=== PATIENT | female | born 1980 | race Caucasian/White ===

== ENCOUNTER 2023-05-21 13:29 | Inpatient (IN) | payer OTHER, SELFPAY ==
[2023-05-20 20:12] VITALS: BP 139/87
[2023-05-20 20:23] VITALS: BMI 29.4
--- NOTE | 2023-05-20 20:28 | ED.GENMED ---
History of Present Illness
<Quang Ramos MD - Last Filed: 05/20/23 23:31>
General
Chief Complaint: Breathing Problem
Source: patient
Exam Limitations: none
Time Seen by Provider: 05/20/23 20:00
Nursing documentation reviewed up to this point in time: agreed with
Travel History
Have you had any contact with someone who has COVID-19?: No
Do you have any symptoms of coronavirus? Fever > 100 degrees, chills, cough, shortness of breath, sore throat, loss of taste or smell, muscle aches, or headache?: No
History of Present Illness
History of Present Illness:
Patient with history asthma, presents to ED from outpatient surgical center where she completed 8-hour scheduled plastic surgery, secondary to persistent hypoxia post procedure. Per report, patient was given 6 L of IV fluids as part of procedure,
but 3 L were removed during the procedure. Patient was given albuterol nebulizer treatment along with 10 mg of IV Lasix. Patient still has not voided. Patient denies fever. Denies headache. Denies dizziness. Denies chest pain.
Review of Systems
<Quang Ramos MD - Last Filed: 05/20/23 23:31>
Review of Systems
Allergies reviewed?: Yes
All Other Systems: ROS reviewed and negative except as documented in HPI and ROS
Constitutional: Reports no symptoms; Denies fever
EENT: Reports no symptoms
Respiratory: Reports trouble breathing; Denies cough
Cardiac: Reports no symptoms
ABD/GI: Reports no symptoms
: Reports no symptoms
Musculoskeletal: Reports no symptoms
Skin: Reports no symptoms
Neurological: Reports no symptoms
Phy Exam
<Quang Ramos MD - Last Filed: 05/20/23 23:31>
Physical Exam
Physical Exam:
Physical Exam
General: mild respiratory distress, not acutely ill. afebrile
Head: nc/at. eomi
Neck: supple. normal range of motion.
Heart: s1/s2 regular rate and rhythm, no murmur. equal radial pulses.
Lungs: mild respiratory distress. diminished breath sounds bilaterally
Abdomen: normal bowel sounds. not tender.
Neuro: alert and oriented. no focal neurological deficits
Skin: no rash
Psychiatric: well kept. interactive and cooperative
Extremities: no edema. no calf tenderness.
Course
<Quang Ramos MD - Last Filed: 05/20/23 23:31>
Orders/Labs/Results
Orders:
Orders
05/20/23 20:09
CR Chest Portable - 1 View Urgent
Comment:
Reason For Exam: sob
Reason Study Needs to be Portable: Patient Unstable
05/20/23 22:21
Acetaminophen [Tylenol] 1,000 mg PO NOW STA
05/20/23 23:29
Lai Placement- Treatment ONCE
Reason for insertion: Acute Retention
05/21/23 01:44
Morphine Sulfate 4 mg IV NOW STA
05/21/23 01:45
Ice Pack-Treatment DIRECTED
Location: b/l breast and abd
05/21/23 05:44
Oxycodone/Acetaminophen [Percocet 5/325] 1 tablet PO NOW STA
05/21/23 09:41
CefTRIAXone [Rocephin] 1,000 mg IV NOW STA
MetroNIDAZOLE 500 MG/100 ML [Flagyl 500 mg] 100 ml IV NOW
05/21/23 10:10
Complete Blood Count/With Diff Urgent
Comprehensive Metabolic Panel Urgent
NT-proBNP Urgent
05/21/23 12:56
Admit/Transfer Patient As Directed
Co-Sign Provider:
Level of Care: Inpatient admission
Assign to:: Medical/Surgical
Physician / Group: Mirsky/Hospitalist
Diagnosis: Respiratory Distress
Reason for Hospitalization: Respiratory Distress
Expected length of stay greater than two midnights?: Yes
ELOS- Estimated Length of Stay in days: 3
I certify the patient meets the requirements for IP care: Yes
05/21/23 13:00
CT Chest Pe Study Urgent
Comment:
Reason For Exam: hypoxia s/p operation
05/21/23 13:01
Code Status As Directed
Resuscitation Status: Full Code
05/21/23 13:37
Oxycodone/Acetaminophen [Percocet 5/325] 1 tablet PO Q4HPRN PRN
Abnormal Lab Results
05/21/23
10:10
RBC 3.43 L 10^6/uL
(4.20-5.40)
Hgb 10.7 L g/dL
(12.0-16.0)
Hct 31.3 L %
(37.0-47.0)
MCH 31.2 H pg
(27.0-31.0)
Absolute Neuts (auto) 7.4 H 10^3/uL
(1.4-6.5)
Absolute Lymphs (auto) 1.1 L 10^3/uL
(1.2-3.4)
Neutrophils % 81.4 H %
(42.2-75.2)
Lymphocytes % 11.8 L %
(20.5-51.1)
Sodium 134 L mmol/L
(135-145)
Glucose 110 H mg/dl
(70-99)
Calcium 7.7 L mg/dl
(8.4-10.2)
AST 38 H U/L
(14-36)
Total Protein 5.5 L g/dl
(6.3-8.2)
Albumin 3.3 L g/dl
(3.5-5.0)
05/21/23 10:10
05/21/23 10:10
Vital Signs
Initial and Last Documented VS:
Initial Vital Signs
Temp Pulse BP Pulse Ox
37.0 C 98 139/87 98
05/20/23 20:12 05/20/23 20:12 05/20/23 20:12 05/20/23 20:12
Last Documented Vital Signs
Temp Pulse Resp BP Pulse Ox
37.0 C 96 15 142/67 94
05/20/23 20:12 05/21/23 03:15 05/21/23 03:15 05/21/23 13:00 05/21/23 13:00
<Desiree Dominguez, DO - Last Filed: 05/21/23 05:49>
Orders/Labs/Results
Orders:
Orders
05/20/23 20:09
CR Chest Portable - 1 View Urgent
Comment:
Reason For Exam: sob
Reason Study Needs to be Portable: Patient Unstable
05/20/23 22:21
Acetaminophen [Tylenol] 1,000 mg PO NOW STA
05/20/23 23:29
Lai Placement- Treatment ONCE
Reason for insertion: Acute Retention
05/21/23 01:44
Morphine Sulfate 4 mg IV NOW STA
05/21/23 01:45
Ice Pack-Treatment DIRECTED
Location: b/l breast and abd
05/21/23 05:44
Oxycodone/Acetaminophen [Percocet 5/325] 1 tablet PO NOW STA
05/21/23 09:41
CefTRIAXone [Rocephin] 1,000 mg IV NOW STA
MetroNIDAZOLE 500 MG/100 ML [Flagyl 500 mg] 100 ml IV NOW
05/21/23 10:10
Complete Blood Count/With Diff Urgent
Comprehensive Metabolic Panel Urgent
NT-proBNP Urgent
05/21/23 12:56
Admit/Transfer Patient As Directed
Co-Sign Provider:
Level of Care: Inpatient admission
Assign to:: Medical/Surgical
Physician / Group: Mirsky/Hospitalist
Diagnosis: Respiratory Distress
Reason for Hospitalization: Respiratory Distress
Expected length of stay greater than two midnights?: Yes
ELOS- Estimated Length of Stay in days: 3
I certify the patient meets the requirements for IP care: Yes
05/21/23 13:00
CT Chest Pe Study Urgent
Comment:
Reason For Exam: hypoxia s/p operation
05/21/23 13:01
Code Status As Directed
Resuscitation Status: Full Code
05/21/23 13:37
Oxycodone/Acetaminophen [Percocet 5/325] 1 tablet PO Q4HPRN PRN
Abnormal Lab Results
05/21/23
10:10
RBC 3.43 L 10^6/uL
(4.20-5.40)
Hgb 10.7 L g/dL
(12.0-16.0)
Hct 31.3 L %
(37.0-47.0)
MCH 31.2 H pg
(27.0-31.0)
Absolute Neuts (auto) 7.4 H 10^3/uL
(1.4-6.5)
Absolute Lymphs (auto) 1.1 L 10^3/uL
(1.2-3.4)
Neutrophils % 81.4 H %
(42.2-75.2)
Lymphocytes % 11.8 L %
(20.5-51.1)
Sodium 134 L mmol/L
(135-145)
Glucose 110 H mg/dl
(70-99)
Calcium 7.7 L mg/dl
(8.4-10.2)
AST 38 H U/L
(14-36)
Total Protein 5.5 L g/dl
(6.3-8.2)
Albumin 3.3 L g/dl
(3.5-5.0)
05/21/23 10:10
05/21/23 10:10
Vital Signs
Initial and Last Documented VS:
Initial Vital Signs
Temp Pulse BP Pulse Ox
37.0 C 98 139/87 98
05/20/23 20:12 05/20/23 20:12 05/20/23 20:12 05/20/23 20:12
Last Documented Vital Signs
Temp Pulse Resp BP Pulse Ox
37.0 C 96 15 142/67 94
05/20/23 20:12 05/21/23 03:15 05/21/23 03:15 05/21/23 13:00 05/21/23 13:00
<Thiago Russ MD - Last Filed: 05/21/23 14:17>
Orders/Labs/Results
Orders:
Orders
05/20/23 20:09
CR Chest Portable - 1 View Urgent
Comment:
Reason For Exam: sob
Reason Study Needs to be Portable: Patient Unstable
05/20/23 22:21
Acetaminophen [Tylenol] 1,000 mg PO NOW STA
05/20/23 23:29
Lai Placement- Treatment ONCE
Reason for insertion: Acute Retention
05/21/23 01:44
Morphine Sulfate 4 mg IV NOW STA
05/21/23 01:45
Ice Pack-Treatment DIRECTED
Location: b/l breast and abd
05/21/23 05:44
Oxycodone/Acetaminophen [Percocet 5/325] 1 tablet PO NOW STA
05/21/23 09:41
CefTRIAXone [Rocephin] 1,000 mg IV NOW STA
MetroNIDAZOLE 500 MG/100 ML [Flagyl 500 mg] 100 ml IV NOW
05/21/23 10:10
Complete Blood Count/With Diff Urgent
Comprehensive Metabolic Panel Urgent
NT-proBNP Urgent
05/21/23 12:56
Admit/Transfer Patient As Directed
Co-Sign Provider:
Level of Care: Inpatient admission
Assign to:: Medical/Surgical
Physician / Group: Mirsky/Hospitalist
Diagnosis: Respiratory Distress
Reason for Hospitalization: Respiratory Distress
Expected length of stay greater than two midnights?: Yes
ELOS- Estimated Length of Stay in days: 3
I certify the patient meets the requirements for IP care: Yes
05/21/23 13:00
CT Chest Pe Study Urgent
Comment:
Reason For Exam: hypoxia s/p operation
05/21/23 13:01
Code Status As Directed
Resuscitation Status: Full Code
05/21/23 13:37
Oxycodone/Acetaminophen [Percocet 5/325] 1 tablet PO Q4HPRN PRN
Abnormal Lab Results
05/21/23
10:10
RBC 3.43 L 10^6/uL
(4.20-5.40)
Hgb 10.7 L g/dL
(12.0-16.0)
Hct 31.3 L %
(37.0-47.0)
MCH 31.2 H pg
(27.0-31.0)
Absolute Neuts (auto) 7.4 H 10^3/uL
(1.4-6.5)
Absolute Lymphs (auto) 1.1 L 10^3/uL
(1.2-3.4)
Neutrophils % 81.4 H %
(42.2-75.2)
Lymphocytes % 11.8 L %
(20.5-51.1)
Sodium 134 L mmol/L
(135-145)
Glucose 110 H mg/dl
(70-99)
Calcium 7.7 L mg/dl
(8.4-10.2)
AST 38 H U/L
(14-36)
Total Protein 5.5 L g/dl
(6.3-8.2)
Albumin 3.3 L g/dl
(3.5-5.0)
05/21/23 10:10
05/21/23 10:10
Vital Signs
Initial and Last Documented VS:
Initial Vital Signs
Temp Pulse BP Pulse Ox
37.0 C 98 139/87 98
05/20/23 20:12 05/20/23 20:12 05/20/23 20:12 05/20/23 20:12
Last Documented Vital Signs
Temp Pulse Resp BP Pulse Ox
37.0 C 96 15 142/67 94
05/20/23 20:12 05/21/23 03:15 05/21/23 03:15 05/21/23 13:00 05/21/23 13:00
<Quang Ramos MD - Last Filed: 05/20/23 23:31>
MDM/Problems Addressed
MDM/Problems Addressed:
Chest x-ray: No evidence of fluid overload noted. Other possible perihilar infiltrate noted, patient without any history of recent upper respiratory infection.
Lai catheter inserted for diuresis, secondary to likely general anesthesia induced urinary retention.
Patient is able to be titrated off oxygen steadily during observation.
<Desiree Dominguez DO - Last Filed: 05/21/23 05:49>
*Critical Care Note
Total Time (30-74mins, 75-104mins- exclusive of procedures): Not Applicable
<Desiree Dominguez DO - Last Filed: 05/21/23 05:49>
Update Note
Update Note:
05/21/2023 0544 AM
Patient feeling markedly improved.
She has diuresed over 4 L.
Respirations are easy nonlabored and we have successfully weaned supplemental oxygen to off.
Scant bibasilar rales otherwise lungs are clear to auscultation.
She has been given an IV dose of morphine for postoperative pain at 1:45 AM and will plan for an oral dose of Percocet now.
Will plan to discharge this morning to follow-up in Dr. Gonzalez's office as scheduled this morning.
Will DC Joelle prior to discharge.
<Thiago Russ MD - Last Filed: 05/21/23 14:17>
Update Note
Update Note:
05/21/2023 0544 AM
Patient feeling markedly improved.
She has diuresed over 4 L.
Respirations are easy nonlabored and we have successfully weaned supplemental oxygen to off.
Scant bibasilar rales otherwise lungs are clear to auscultation.
She has been given an IV dose of morphine for postoperative pain at 1:45 AM and will plan for an oral dose of Percocet now.
Will plan to discharge this morning to follow-up in Dr. Gonzalez's office as scheduled this morning.
Will DC Lai prior to discharge.
UPDATE (Thiago Russ MD)
I was asked to reassess the patient by nurse. Patient presented with hypoxia and shortness of breath after outpatient surgery with Dr. Gonzalez. She arrived on 10 L nasal cannula and was weaned off oxygen. X-ray showed right lower lobe opacity. It
was thought that she had postoperative CHF as she was given significant amount of fluid (6 L) intraoperative. Patient was given IV Lasix prior to arrival. She had significant diuresis here. She was apparently having some subjective improvement
and they attempted to wean her off of oxygen and plan was for discharge this morning to follow-up as an outpatient with Dr. Gonzalez. Unfortunately patient has had significant desaturation since assessment at 5:45 AM�pulse ox now 87% on room air while
patient is awake. She was placed back on nasal cannula. I think at this point she has been here for 14 hours and is still having hypoxia we will plan for admission for acute respiratory failure with hypoxia suspect related to postoperative volume
overload versus aspiration/pneumonia although somewhat less likely pneumonia given lack of fever and rather abrupt onset after surgery. Will cover with antibiotics. Will send basic labs. Discussed with hospitalist for admission.
Discussed with hospitalist for admission�hospitalist requesting we order CTA to rule out PE as well.
CTA called back by radiology: Positive for right-sided pulmonary embolism. Start patient on heparin infusion. Hospitalist updated.
ED Attending Note
<Quang Ramos MD - Last Filed: 05/20/23 23:31>
-
Portions of this chart may have been created with voice recognition software.� Occasional wrong word or��sound alike� substitutions may have occurred due to the inherent limitations of voice recognition software.
Discharge Plan
Departure
Patient Disposition: Admit
Date of Disposition: 05/21/23
Time of Disposition: 05:43
Admit to doctor: Shakeel
Presentation/result/management discussed w/ accepting MD/DO: Hospitalist
Patient with high blood pressure during this ER visit?: No
Condition: Good
Discharge Problem:
Acute respiratory failure with hypoxia, acute postoperative CHF, Aspiration pneumonitis
Interventions
Interventions:
*Risk Screen - Suicide Last Done: 05/20/23 20:23
*General Assessment Last Done: 05/20/23 20:23
*Neglect/Abuse Screening Last Done: 05/21/23 00:37
ED- Fall Risk Assessment Last Done: 05/21/23 00:37
*ED COVID-19 Vaccine History Last Done: 05/20/23 20:23
ED- Cardiac Assessment Last Done: 05/21/23 03:17
ED- Pulmonary Assessment Last Done: 05/21/23 03:17
[2023-05-20 21:00] VITALS: BP 138/79
[2023-05-20 22:00] VITALS: BP 139/80
[2023-05-20] MEDS: TYLENOL 1000 MG PO (22:32)
[2023-05-21] VITALS (16 sets, daily range): BP systolic 112–166; BP diastolic 66–101
[2023-05-21] MEDS: MORPHINE SULFATE 4 MG IV (01:49)
[2023-05-21] MEDS: PERCOCET 5/325 1 TABLET PO ×3 (05:50→19:46)
[2023-05-21 10:16] LABS: % Basophils 0.2 % (0-2); % Immature Granulocytes 0.3 % (0-0.5); % Lymphocytes 11.8 % (20.5-51.1); % Monocytes 6.3 % (1.7-9.3); % Neutrophils 81.4 % (42.2-75.2); Absolute Lymphocytes 1.1 10^3/uL (1.2-3.4); Absolute Monocytes 0.6 10^3/uL (0.1-0.6); Absolute Neutrophils 7.4 10^3/uL (1.4-6.5); Hematocrit 31.3 % (37.0-47.0); Hemoglobin 10.7 g/dL (12.0-16.0); Mean Corp Hgb Conc. 34.2 g/dL (33.0-37.0); Mean Corpuscular Hgb 31.2 pg (27.0-31.0); Mean Corpuscular Volume 91.3 fL (81.0-99.0); Mean Platelet Volume 8.6 fL (7.4-10.4); Nucleated Red Blood Cells % 0 %; Platelet Count 226 10^3/uL (130-400); Red Blood Cell Count 3.43 10^6/uL (4.20-5.40); Red Cell Dist. Width 13.3 % (11.5-14.5); White Blood Cell Count 9.1 10^3/uL (4.8-10.8)
[2023-05-21] MEDS: ROCEPHIN 1000 MG IV (10:18)
[2023-05-21 10:34] LABS: ALT (SGPT) 22 U/L (0-35); AST (SGOT) 38 U/L (14-36); Albumin 3.3 g/dl (3.5-5.0); Alkaline Phosphatase 59 U/L (38-126); Blood Urea Nitrogen 7 mg/dl (7-17); Calcium 7.7 mg/dl (8.4-10.2); Carbon Dioxide 28 mmol/L (22-30); Chloride 106 mmol/L (98-107); Estimated Creatinine Clearance 118 ml/min; Glucose 110 mg/dl (70-99); Potassium 3.5 mmol/L (3.5-5.1); Sodium 134 mmol/L (135-145); Total Bilirubin 0.7 mg/dl (0.2-1.3); Total Protein 5.5 g/dl (6.3-8.2); eGFR > 60.00
[2023-05-21] MEDS: FLAGYL 500 MG 100 IV ×3 (10:36→23:18)
[2023-05-21 10:42] LABS: NT-proBNP 506 pg/ml
--- NOTE | 2023-05-21 12:44 | W.PN.HOSP.TC ---
Today's Communication/Plan
-
empiric abx
CT-A
Assessment / Plan
Assessment / Plan
respiratory distress post surgical intervention
underwent breast augmentation replacements (original done 2006) with farzana escalante 05/20. Today she feels better, but remains somewhat sob
Etiology unclear, possibly related to fluid, possible small infrahilar PNA, though concern for PE
Hypothyroid by hx
depression/anxiety on Lexapro
P:CT-A
empiric abx
full code
see dictated note
Anticipated Discharge: 24 - 48 hours
Subjective/Interval History
-
Date of Service: May 21, 2023
remains sob, but better than yesterday
Objective Data
-
Labs:
Laboratory Results
05/21/23
10:10
WBC 9.1
Hgb 10.7 L
Hct 31.3 L
Plt Count 226
Sodium 134 L
Potassium 3.5
Chloride 106
Carbon Dioxide 28
BUN 7
Creatinine 0.7
Glucose 110 H
Calcium 7.7 L
Total Bilirubin 0.7
AST 38 H
ALT 22
Alkaline Phosphatase 59
Vital Signs:
Vital Signs
Temp Pulse Resp BP Pulse Ox
98.6 F 96 15 153/81 99
05/20/23 20:12 05/21/23 03:15 05/21/23 03:15 05/21/23 12:00 05/21/23 12:00
I&O
05/20/23 05/21/23 05/22/23
06:59 06:59 06:59
Output Total 3150 / 3150 1150 / 1150
Balance -3150 / -3150 -1150 / -1150
Review of Systems
-
History Source: Patient and Family (aunt Suzette in room)
Constitutional: Denies Fever
EENT: Reports No Symptoms Reported
Respiratory: Reports Trouble Breathing
Cardiac: Reports No Symptoms; Denies Chest Pain
Abdomen/GI: Reports Abdominal Pain (post op)
Musculoskeletal: Reports No Symptoms
Physical Exam
-
General: Well Developed, Well Nourished and No Apparent Distress
HEENT: Normocephalic, Atraumatic and Moist Mucous Membranes
Respiratory: Clear to Auscultation (on somewhat shallow respirations); Negative Wheezes, Rales or Rhonchi
Cardiac: Regular Rhythm and S1/S2
GI: Soft, Normal Bowel Sounds and Tender
Neuro: Awake, Alert and Oriented
[2023-05-21] MEDS: HEPARIN 6800 UNITS IV (14:48)
[2023-05-21] MEDS: HEPARIN 25000 UNITS/250 ML IV (14:51)
[2023-05-21 15:35] LABS: APTT > 200 Sec (23.4-35.0)
[2023-05-21 15:59] LABS: INR 1.26; PT 15.6 Sec (11.4-14.6)
--- NOTE | 2023-05-21 16:02 | W.PN.PLAS ---
Progress Note
Subjective Data
Pt present to me with requests for breast and body contouring. She had surgery elsewhere in the past and complaind of pain in the left breast.
Pt underwent bilateral implant removal, capsulectomy left with ruptured implant, bilateral re-augmentation, mastopexy, abdominoplasty and lipo waist. Procedure went well. Pt noted to desat on monitor in pacu off O2. Pt sent to for eval. RLL
infiltrate. I saw the patient in the the Er and removed dressings. Subsequent spiral CT shows PE.
Pt with minimal pain at present. Feels tired.
Subjective: Pain Level (tolerable), Tolerating Regular Diet (yes), Ambulatory (OOB), Lai in Place (No), Lai Removed (Yes) and Patient Voided (yes)
Objective Data
Vital Signs
Temp Pulse Resp BP Pulse Ox
99.8 F 101 16 166/101 98
05/21/23 14:44 05/21/23 14:44 05/21/23 14:44 05/21/23 14:44 05/21/23 14:44
Intake and Output
05/20/23 05/21/23 05/22/23
06:59 06:59 06:59
Output Total 3150 / 3150 1150 / 1150
Balance -3150 / -3150 -1150 / -1150
Output:
Urine, Lai 1200 / 1200 1150 / 1150
Urine, Voided 1950 / 1950
Lab Results
05/21/23 10:10
05/21/23 10:10
Review of Systems
Review of Systems: Satisfactory Appetite
Physical Exam
Wound:
Incisions all CDI. Nipples pink and viable. Umbilicus pink. Implants mobile. Drains with minimal serosang. Flaps pink and viable.
Wound: Malodorius: No, Draining: No and Dressing Removed / Incision Intact: Yes
Surgical Site: Swelling: Yes, Erythema: No and Hematoma: No
Assessment / Plan
Spiral CT with PE.
Pt currently gettin Heparin.
Discussed with Dr. Valles. Appreciate medical eval and treatments. Will observe closlely for bleeding given all fresh incisions. Pulmonary consulted per hospitalist. Continue drains. OOB ambulate. HOB at 30-45 degrees. Maintain compression
garments.
[2023-05-21 17:03] LABS: APTT > 200 Sec (23.4-35.0)
--- NOTE | 2023-05-21 18:43 | CON.PUL ---
Consultation
Consultation Request
Date/Time Consultation Requested: 05-21-23
Date/Time Consultation Performed: 05-21-23
Requesting Provider: Hospitalist
Performing Provider: Dr Little
Reason for Consultation: dyspnea
Medical History
-
Chief Complaint: dyspnea
History of Present Illness:
Mrs Fauzia Hernandez is a 42/W adm - evening presenting from outpatient surgical center after receiving scheduled bilateral breast augmentation replacement and tummy tuck on DOA.
Reportedly surgery lasted 8 hrs, presented hypoxemia post procedure, received 6L IVFs (reportedly 3L removed intraop, no details available), given albuterol nebs and furosemide 10 mg IV.
At ER, arrived on 10L O2, mild resp distress, Lai inserted, diuretic IV followed by diuresis of 4L, O2 weaned off, observed at ER overnight, reassessed in early AM, hypoxemia returned. Chest CTA this am showed R pulmonary embolism, started IV
heparin
No personal or FH VTE. LLNS. No recent immobilization or long trips. Very active life style. No personal h/o cancer
Past Medical History
Past Medical History: Other (see A&P for PMH/PSH)
Social History
Tobacco: Non-smoker
Alcohol: Occasional
Drug: None
Personal:
Living: With Family
Employment: Employed
Family History
Family History: Reviewed & Not Pertinent
Allergies / Home Medications
Allergies
Allergy/AdvReac Type Severity Reaction Status Date / Time
No Known Allergies Allergy Verified 05/20/23 22:28
Home Medications
Medication Instructions Recorded Confirmed Last Taken Type
Vitamin C 1 tab PO NOON 05/21/23 05/21/23 05/19/23 History
acetaminophen 325 mg tablet 650 mg PO BIDPRN PRN mild pain 05/21/23 05/21/23 Unknown History
(Tylenol)
arnica 6 tab PO .SEE BELOW 05/21/23 05/21/23 05/19/23 History
cholecalciferol (vitamin D3) 1 tab PO NOON 05/21/23 05/21/23 05/19/23 History
clonazepam 1 mg tablet 1 mg PO HS PRN anxiety 05/21/23 05/21/23 2 Weeks Ago History
~05/07/23
escitalopram oxalate 20 mg tablet 20 mg PO DAILY 05/21/23 05/21/23 05/19/23 History
fluticasone 100 mcg-salmeterol 50 1 inh inhalation R BIDPRN PRN when 05/21/23 05/21/23 Unknown History
mcg/dose blistr powdr for feel sick
inhalation
levothyroxine 100 mcg tablet 100 mcg PO DAILY 05/21/23 05/21/23 05/20/23 History
polyethylene glycol 3350 17 gram 17 g PO DAILY PRN constipation 05/21/23 05/21/23 05/19/23 History
oral powder packet (Miralax)
zinc 1 tab PO NOON 05/21/23 05/21/23 05/19/23 History
Review of Systems
-
History Source: Patient
All other systems: Negative unless noted
Respiratory: Trouble Breathing
Skin: Other (incisional pain)
Vitals / Labs / Diagnostic Testing
Vital Signs
Temp Pulse Resp BP Pulse Ox
99.8 F 101 16 166/101 98
05/21/23 14:44 05/21/23 14:44 05/21/23 14:44 05/21/23 14:44 05/21/23 14:44
Lab Data
05/21/23 10:10
05/21/23 10:10
Laboratory Results
05/21/23 05/21/23 05/21/23
14:59 16:24 16:45
PT 15.6 H Cancelled
INR 1.26 Cancelled
APTT > 200 H* > 200 H*
Diagnostic Testing:
Physical Exam
-
HEENT: Normocephalic and Moist Mucous Membranes
Cardiovascular: Regular Rhythm, Peripheral Edema (n) and JVD (n)
Respiratory: Rhonchi and Non-Labored Respirations
GI: Soft, Non Distended and Non Tender
Neurology: Awake, AO x 3 and No Motor Deficits
Skin: Dry
General: Respiratory Distress (n)
Assessment
-
Assessment:
Mrs Fauzia Hernandez is a 42/W adm - evening presenting from outpatient surgical center after receiving scheduled bilateral breast augmentation replacement and tummy tuck on DOA. Reportedly surgery lasted 8 hrs, presented hypoxemia post procedure,
received 6L IVFs (reportedly 3L removed intraop, no details available), given albuterol nebs and furosemide 10 mg IV. At ER, arrived on 10L O2, mild resp distress, Lai inserted, diuretic IV followed by diuresis of 4L, O2 weaned off, observed at ER
overnight, reassessed in early AM, hypoxemia returned. Chest CTA this am showed R pulmonary embolism, started IV heparin
Impression:
RUL, RLL PE in a poor quality chesyt CTA
Provoked event: prolonged surgical procedure
Aspiration pneumonia
Small dependent pleural effusions
Mild postop anemia
Mild hyponatremia
Normal BNP
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
S/p bilateral implant removal, capsulectomy left with ruptured implant, bilateral re-augmentation, mastopexy, abdominoplasty and lipo waist 05-20-23
Mild asthma, only occasional need for albuterol HFA
Anxiety
Hypothyroidism
Obesity
LLNS
Plan:
Provoked PE in setting of prolonged surgical procedure
No personal or FH of VTE
Continue IV heparin nomogram
Transition to DOAC once OK by plastic surgery
Length of therapy at least 3 m
RALPH doppler
Will not be able to do TTE at this juncture due to postop pain, but will do once improved
Aspiration pneumonia
Continue empiric ceftriaxone/metronidazole, continue for at least 5 d of atb coverage
Blood and sputum cx
Intermittent CXR
IS
Added guaifenesin, acapella valve
Asp precs
Pain mgmt
Will follow [facility] upon d/c
D/w Mrs and Mr Hernandez at bedside
Diagnostic tests:
CXR 05-20-23: portable, underpenetrated, R paracardiac irregular density, pulm vasc and parenchymal congestion. Cervical metallic plate
Chest CTA 05-21-23
FINDINGS: The exam is severely limited due to patient breathing motion, arms at the sides, and body size.
There is a filling defect within the right upper and lower lobe pulmonary arteries, consistent with pulmonary emboli. No definite pulmonary embolus on the left.
There are scattered bilateral groundglass opacities within the lungs, most consistent with a pneumonic process. Did the patient aspirate?
There are small bilateral pleural effusions, bibasilar dependent atelectasis and consolidation.
The heart size is within the limits of normal. There is limited imaging in the upper abdomen.
Regional skeleton intact. Patient is status post anterior cervical fusion, incompletely imaged on this exam.
The patient is status post bilateral breast implants, and there is air surrounding the implants, and in the subcutaneous tissues adjacent to the postsurgical region bilaterally. No pneumothorax. No air within the mediastinum.
IMPRESSION:
1. Pulmonary emboli in the right upper and lower lobe pulmonary arteries.
2. Bilateral groundglass opacities scattered throughout the lungs, consistent with a pneumonic process. Did the patient aspirate?
3. Small bilateral pleural effusions and bibasilar atelectasis and consolidation.
4. Air surrounding the bilateral breast implants, postoperative finding.
[2023-05-21] MEDS: MUCINEX 600 MG PO (21:43)
[2023-05-22] VITALS (8 sets, daily range): BP systolic 141–166; BP diastolic 75–96
[2023-05-22 01:31] LABS: Hemoglobin 10.9 g/dL (12.0-16.0); Mean Corp Hgb Conc. 35.2 g/dL (33.0-37.0); Mean Corpuscular Hgb 31.4 pg (27.0-31.0); Mean Corpuscular Volume 89.3 fL (81.0-99.0); Mean Platelet Volume 8.9 fL (7.4-10.4); Platelet Count 218 10^3/uL (130-400); Red Blood Cell Count 3.47 10^6/uL (4.20-5.40); Red Cell Dist. Width 13.3 % (11.5-14.5); White Blood Cell Count 7.4 10^3/uL (4.8-10.8)
[2023-05-22 02:05] LABS: Procalcitonin < 0.05 ng/ml (0.0-0.25)
[2023-05-22 02:12] LABS: Blood Urea Nitrogen 6 mg/dl (7-17); Calcium 8.2 mg/dl (8.4-10.2); Carbon Dioxide 26 mmol/L (22-30); Chloride 102 mmol/L (98-107); Estimated Creatinine Clearance > 125 ml/min; Glucose 125 mg/dl (70-99); Potassium 3.4 mmol/L (3.5-5.1); Sodium 136 mmol/L (135-145); eGFR > 60.00
[2023-05-22] MEDS: TYLENOL 650 MG PO (03:02)
[2023-05-22] MEDS: SYNTHROID 100 MCG PO (06:09)
[2023-05-22 07:57] LABS: APTT 114.5 Sec (23.4-35.0)
[2023-05-22] MEDS: PERCOCET 5/325 1 TABLET PO ×3 (08:51→22:09)
[2023-05-22] MEDS: MUCINEX 600 MG PO ×2 (08:51→20:43)
[2023-05-22] MEDS: LEXAPRO 20 MG PO (08:51)
[2023-05-22] MEDS: ROCEPHIN 1000 MG IV (08:52)
[2023-05-22] MEDS: STERILE WATER FOR INJECTION 10 ML IV (08:53)
[2023-05-22] MEDS: FLAGYL 500 MG 100 IV ×3 (08:53→23:46)
--- NOTE | 2023-05-22 09:24 | W.PN.HOSP.TC ---
Today's Communication/Plan
-
venous doppler
Echocardiogram
continue Heparin for now
CM assistance in determining insurance preference ([employer]) for DOAC
Assessment / Plan
Assessment / Plan
respiratory distress post surgical intervention
hypoxemia resolved, SaO2 98% on room air
underwent breast augmentation replacements (original done 2006) with farzana escalante 05/20. Day of admission felt a little better than prior to coming to ER, but has seen further improvement past 24 hrs
Etiology could be multifactorial, possibly related to fluid (received 6 L during surgery, (BNP 506,nl for her age group is <450) possible small infrahilar PNA, possibly splinting from chest and abd surgery, as well as PE
Chest CT: 1. � Pulmonary emboli in the right upper and lower lobe pulmonary arteries.
2. � Bilateral groundglass opacities scattered throughout the lungs, consistent with a pneumonic process. Did the patient aspirate?
3. � Small bilateral pleural effusions and bibasilar atelectasis and consolidation.
4. � Air surrounding the bilateral breast implants, postoperative finding.
Hypothyroid by hx
Hx of asthma
usually only associated with URI
depression/anxiety on Lexapro
P:bilateral LE venous Doppler
empiric abx
Will try to get Echo, okay to take Percocet prior to TTE
Requested through nursing for Case Management to determine if there will be an insurance issue with DOAC
continue Heparin
input of puljackson appreciated
Pt lives in [place], requested she contact PCP office to determine where PCP would prefer pt get follow up care and if able, to schedule appt to be set up post dc
full code
Anticipated Discharge: 24 - 48 hours
Subjective/Interval History
-
Date of Service: May 22, 2023
Generally feels better, not as sob, though has not been active
Objective Data
-
Labs:
Laboratory Results
05/22/23 05/22/2324
01:13 07:29 14:00
WBC 7.4
Hgb 10.9 L
Hct 31.0 L
Plt Count 218
APTT 85.0 H 114.5 H Pending
Sodium 136
Potassium 3.4 L
Chloride 102
Carbon Dioxide 26
BUN 6 L
Creatinine 0.6
Glucose 125 H
Calcium 8.2 L
Vital Signs:
Vital Signs
Temp Pulse Resp BP Pulse Ox
97.9 F 107 19 144/95 98
05/22/23 07:00 05/22/23 07:00 05/22/23 07:00 05/22/23 07:00 05/22/23 07:00
I&O
05/21/23 05/22/23 05/23/23
06:59 06:59 06:59
Intake Total 720 / 720
Output Total 3150 / 3150 1220 / 1220
Balance -3150 / -3150 -500 / -500
Review of Systems
-
History Source: Patient and Coordinated Provider
Constitutional: Denies Fever
EENT: Reports No Symptoms Reported
Respiratory: Reports Trouble Breathing (slightly better)
Cardiac: Reports No Symptoms; Denies Chest Pain
Abdomen/GI: Reports Abdominal Pain (post op, better, able to take deeper breaths)
Musculoskeletal: Reports No Symptoms
Physical Exam
-
General: Well Developed, Well Nourished and No Apparent Distress
HEENT: Normocephalic, Atraumatic and Moist Mucous Membranes
Respiratory: Clear to Auscultation (on somewhat shallow respirations, though able to take deeper breaths); Negative Wheezes, Rales or Rhonchi
Cardiac: Regular Rhythm and S1/S2
GI: Soft, Normal Bowel Sounds and Tender (post op)
Neuro: Awake, Alert and Oriented
--- NOTE | 2023-05-22 10:22 | CM ---
Addendum entered by Arianna Ferris 05/22/23 13:40:
Asked to obtain reece check for d/c medications Eliquis and Xarelto
Pts coverage would cover both medications
Co-pay for 30 supply at [facility] - $100
Co-pay for 90 supply at [facility] - $[address] Valles made aware
CM will continue to follow for d/c needs
Original Note:
Chart reviewed. Spoke with pt at bedside
Pt lives in a 2 story home with and child.
Denies past HH/SNF
There is a shower chair in home fo another family member
PCP - Dr Hardin
Pharm [facility]
Will have ride at d/c
CM will follow for discharge needs
Plan - anticipate home to previous setting
--- NOTE | 2023-05-22 10:43 | W.PN.UPDATE ---
Update Note
Progress Note Update
Pt seen and examined. Chart reviewed. Pulm input appreciated. Pt feels better. less pain. Less SOB.
Incisions CDI. Implants mobile. Nipples pink and viable. No palpable fluid collections. No ecchymosis. Umbilicus pink. Posterior lipo area without fluid waves. Mild creases lateral waist due to positioning. Drains with minimal serosang.
A/p s/p Bilateral breast re-aug, capsulectomy, ruptured implant revmoval, bilateral mastopexy, abdominoplasty, lipo anterior posterior waist.
Right PE with RUL LL pneumonia.
Appreciate medical teams management. Continue pain control. OOB. Ambulate. ABX. PO fluids. No appreciable bleeding from operative sites at present. Cont to monitor closely. thank you .
[2023-05-22] MEDS: KCL 20 MEQ PO (10:51)
[2023-05-22] MEDS: ZINC SULFATE 220 MG PO (12:44)
[2023-05-22] MEDS: VITAMIN D3 (cholecalciferol) 10 MCG PO (12:44)
[2023-05-22] MEDS: VITAMIN C 250 MG PO (12:44)
[2023-05-22] MEDS: HEPARIN 25000 UNITS/250 ML IV (13:27)
[2023-05-22 14:01] LABS: APTT 58.5 Sec (23.4-35.0)
[2023-05-22] MEDS: HEPARIN 6800 UNITS IV (14:14)
--- NOTE | 2023-05-22 15:42 | W.PN.PUL3 ---
Today's Communication / Plan
-
Atbs
AC
CXR
Assessment
-
Assessment:
Mrs Fauzia Hernandez is a 42/W adm 05-20 evening presenting from outpatient surgical center after receiving scheduled bilateral breast augmentation replacement and tummy tuck on DOA. Reportedly surgery lasted 8 hrs, presented hypoxemia post procedure,
received 6L IVFs (reportedly 3L removed intraop, no details available), given albuterol nebs and furosemide 10 mg IV. At ER, arrived on 10L O2, mild resp distress, Lai inserted, diuretic IV followed by diuresis of 4L, O2 weaned off, observed at ER
overnight, reassessed in early AM, hypoxemia returned. Chest CTA this am showed R pulmonary embolism, started IV heparin
Impression:
RUL, RLL PE in a poor quality chesyt CTA
Provoked event: prolonged surgical procedure
Aspiration pneumonia
Small dependent pleural effusions
Mild postop anemia
Mild hyponatremia
Normal BNP
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
S/p bilateral implant removal, capsulectomy left with ruptured implant, bilateral re-augmentation, mastopexy, abdominoplasty and lipo waist 05-20-23
Mild asthma, only occasional need for albuterol HFA
Anxiety
Hypothyroidism
Obesity
LLNS
Plan:
Provoked PE in setting of prolonged surgical procedure
No personal or FH of VTE
Continue IV heparin nomogram
Transition to DOAC once OK by plastic surgery
Length of therapy at least 3 m. Agrees to follow with [facility] upon d/c
RALPH doppler negative
TTE normal biventricular function
Aspiration pneumonia
Continue empiric ceftriaxone/metronidazole, continue for at least 5 d of atb coverage
Blood and sputum cx
CXR portable in AM
IS
Added guaifenesin, acapella valve
Asp precs
Pain mgmt
Will follow [facility] upon d/c
D/w and Mr Hernandez at bedside at time of consultation
D/w Mrs Hernandez
Diagnostic tests:
CXR 05-20-23: portable, underpenetrated, R paracardiac irregular density, pulm vasc and parenchymal congestion. Cervical metallic plate
Chest CTA 05-21-23
FINDINGS: The exam is severely limited due to patient breathing motion, arms at the sides, and body size.
There is a filling defect within the right upper and lower lobe pulmonary arteries, consistent with pulmonary emboli. No definite pulmonary embolus on the left.
There are scattered bilateral groundglass opacities within the lungs, most consistent with a pneumonic process. Did the patient aspirate?
There are small bilateral pleural effusions, bibasilar dependent atelectasis and consolidation.
The heart size is within the limits of normal. There is limited imaging in the upper abdomen.
Regional skeleton intact. Patient is status post anterior cervical fusion, incompletely imaged on this exam.
The patient is status post bilateral breast implants, and there is air surrounding the implants, and in the subcutaneous tissues adjacent to the postsurgical region bilaterally. No pneumothorax. No air within the mediastinum.
IMPRESSION:
1. Pulmonary emboli in the right upper and lower lobe pulmonary arteries.
2. Bilateral groundglass opacities scattered throughout the lungs, consistent with a pneumonic process. Did the patient aspirate?
3. Small bilateral pleural effusions and bibasilar atelectasis and consolidation.
4. Air surrounding the bilateral breast implants, postoperative finding.
Subjective Data
-
Date of Service:
Date of Service: May 22, 2023
Chief Complaint: Pulmonary Follow Up
Subjective:
No major events reported
Dyspnea at rest resolved
Mild cough with yellowish/cao sputum
NO longer on O2 since late last night
Review of Systems
General: Fever (n), Sweats (n), Chills (n) and Satisfactory Appetite
HEENT: Epistaxis (n) and Dysphagia (n)
Cardiopulmonary: Dyspnea (n at rest), Cough, Wheezing (n) and Chest Pain (incisional)
GI: Abdominal Pain (n), Nausea and Vomiting (n)
Neuro: Weakness (n)
Objective Data
Data Reviewed
Vital Signs / I&O / Oxygen:
Vital Signs
Temp Pulse Resp BP Pulse Ox
98.1 F 96 18 145/89 97
05/22/23 11:27 05/22/23 11:27 05/22/23 11:27 05/22/23 11:27 05/22/23 11:27
Intake and Output
05/21/23 05/22/23 05/23/23
06:59 06:59 06:59
Intake Total 720 / 720
Output Total 3150 / 3150 1220 / 1220
Balance -3150 / -3150 -500 / -500
SaO2 97
Nasal Cannula flow liters per 2
minute
Physical Exam
General: Comfortable
HEENT: Normocephalic and Moist Mucous Membranes
Cardiovascular: Regular Rhythm, Murmur (n), JVD (n), Peripheral Edema (n) and Calf Tenderness (n)
Respiratory: Wheeze, Rhonchi, Non-Labored Respirations and Stridor (n)
GI: Soft, Non Distended and Non Tender
Neurology: Awake, AO x 3 and No Motor Deficits
Skin: Dry
Labs/Micro/Reports
Lab Data
05/22/23 01:13
05/22/23 01:13
Laboratory Results
05/21/23 05/21/23 05/21/23
14:59 16:24 16:45
PT 15.6 H Cancelled
INR 1.26 Cancelled
APTT > 200 H*
05/22/23 05/22/23 05/22/23
01:13 07:29 13:39
PT
INR
APTT 85.0 H 114.5 H 58.5 H
[2023-05-22] MEDS: MIRALAX 17 GRAMS PO (20:43)
[2023-05-22 20:51] LABS: APTT 189.6 Sec (23.4-35.0)
[2023-05-23 03:50] VITALS: BP 153/93
[2023-05-23 04:40] LABS: % Basophils 0.5 % (0-2); % Eosinophils 1.5 % (0-6); % Immature Granulocytes 0.4 % (0-0.5); % Lymphocytes 25.8 % (20.5-51.1); % Monocytes 7.1 % (1.7-9.3); % Neutrophils 64.7 % (42.2-75.2); Absolute Eosinophils 0.1 10^3/uL (0-0.7); Absolute Lymphocytes 2.1 10^3/uL (1.2-3.4); Absolute Monocytes 0.6 10^3/uL (0.1-0.6); Absolute Neutrophils 5.2 10^3/uL (1.4-6.5); Hematocrit 30.3 % (37.0-47.0); Hemoglobin 10.3 g/dL (12.0-16.0); Mean Corpuscular Hgb 31.4 pg (27.0-31.0); Mean Corpuscular Volume 92.4 fL (81.0-99.0); Mean Platelet Volume 8.7 fL (7.4-10.4); Nucleated Red Blood Cells % 0 %; Platelet Count 214 10^3/uL (130-400); Red Blood Cell Count 3.28 10^6/uL (4.20-5.40)
[2023-05-23 05:04] LABS: APTT 75.8 Sec (23.4-35.0)
[2023-05-23 05:14] LABS: Blood Urea Nitrogen 6 mg/dl (7-17); Calcium 8.4 mg/dl (8.4-10.2); Carbon Dioxide 27 mmol/L (22-30); Chloride 103 mmol/L (98-107); Estimated Creatinine Clearance > 125 ml/min; Glucose 120 mg/dl (70-99); Potassium 3.9 mmol/L (3.5-5.1); Sodium 136 mmol/L (135-145); eGFR > 60.00
[2023-05-23] MEDS: SYNTHROID 100 MCG PO (07:16)
--- NOTE | 2023-05-23 07:28 | W.PN.PLAS ---
Progress Note
Subjective Data
Patient seen and examined. Patient denies complaints. Pain is controlled. Ultrasound lower extremities negative for further thrombi. Echocardiogram normal. Discussed with Dr. Valles. Patient out of bed and ambulating.
Objective Data
Vital Signs
Temp Pulse Resp BP Pulse Ox
98.4 F 88 18 153/93 99
05/23/23 03:50 05/23/23 03:50 05/23/23 03:50 05/23/23 03:50 05/23/23 03:50
Intake and Output
05/22/23 05/23/23 05/24/23
06:59 06:59 06:59
Intake Total 720 / 720 940 / 940
Output Total 1220 / 1220 80 / 80
Balance -500 / -500 860 / 860
Intake:
Oral fluids 720 / 720 940 / 940
IV fluids (Total) 0 / 0
IV piggybacks 0 / 0
Output:
Drain Output (Total) 70 / 70 80 / 80
Left 50 / 50 50 / 50
Right 20 / 20 30 / 30
Urine, Lai 1150 / 1150
Other:
Number of approximated SMALL 2
amounts of urine
Number of approximated MODERATE 4 1
amounts of urine
Lab Results
05/23/23 04:33
05/23/23 04:33
Physical Exam
Wound:
Incisions all clean dry and intact. Nipples pink and viable. Umbilicus pink. Implants soft and mobile within the pocket. No ecchymoses. No palpable fluid collections. Abdomen flat. Drains with serous greater than sanguinous. Compression
garments reapplied.
Wound: Malodorius: No, Draining: No, Calf Tenderness: No, Necrotic Tissue: No and Incision Intact: Yes
Surgical Site: Swelling: No, Erythema: No and Hematoma: No
Nipple Color: Good Capillary Refill (yes)
Assessment / Plan
Status post bilateral breast revision, capsulectomy, reaugmentation, mastopexy, abdominoplasty, liposuction of the waist, with pulmonary embolus. Discussed with Dr. Valles. Patient to be discharged on Xarelto. He discussed with me the loading
dose. We will keep a close eye on her for any bleeding. We will maintain drains. I will see her in the office. She has my contact information. Continue antibiotics. Pain medication as prescribed. Thank you so much for assisting in the care of
this patient.
[2023-05-23 07:30] VITALS: BP 140/99
--- NOTE | 2023-05-23 08:02 | W.PN.HOSP.TC ---
Today's Communication/Plan
-
dc to home
Assessment / Plan
Assessment / Plan
respiratory distress post surgical intervention
hypoxemia resolved, SaO2 98% on room air
underwent breast augmentation replacements (original done 2006) with bhaskartk ava 05/20. Day of admission felt a little better than prior to coming to ER, but has seen further improvement past 24 hrs
Etiology could be multifactorial, possibly related to fluid (received 6 L during surgery, (BNP 506,nl for her age group is <450) possible small infrahilar PNA, possibly splinting from chest and abd surgery, as well as PE
Echo �Normal left ventricular chamber size. Normal left ventricular systolic
�function. Left ventricular ejection fraction is 55-60% by visual assessment.
�Normal regional wall motion on limited views.
�Normal right ventricular size. Normal right ventricular systolic function.
�Trace tricuspid regurgitation. Estimated pulmonary artery pressure of 20-25
�mmHg. Assuming a right atrial pressure of 3 mmHg.
�No prior study available for comparison.
Chest CT: 1. � Pulmonary emboli in the right upper and lower lobe pulmonary arteries.
2. � Bilateral groundglass opacities scattered throughout the lungs, consistent with a pneumonic process. Did the patient aspirate?
3. � Small bilateral pleural effusions and bibasilar atelectasis and consolidation.
4. � Air surrounding the bilateral breast implants, postoperative finding.
Hypothyroid by hx
Hx of asthma
usually only associated with URI
depression/anxiety on Lexapro
P:bilateral LE venous Doppler
empiric abx for 1 week further
Xarelto starter pack given to pt (received from pharm rep), first dose now. Call placed and confirmed okay with Dr. Gonzalez
stopHeparin
input of pulm appreciated
Pt lives in [place], will be seeing her PCP next week
full code
dc now
see dictated note
More than 30 minutes spent in discharge including
Final examination of the patient
Summarizing hospital stay
Instructions for continuing care to all relevant caregivers
Preparation of discharge records, prescriptions, and referral forms
Total time spent (in minutes): 45
Anticipated Discharge: Today
Subjective/Interval History
-
Date of Service: May 23, 2023
No sob, feels well
Objective Data
-
Labs:
Laboratory Results
05/22/23 05/23/23 05/23/23
20:10 04:33 10:30
WBC 8.0
Hgb 10.3 L
Hct 30.3 L
Plt Count 214
APTT 189.6 H* 75.8 H Pending
Sodium 136
Potassium 3.9
Chloride 103
Carbon Dioxide 27
BUN 6 L
Creatinine 0.6
Glucose 120 H
Calcium 8.4
Vital Signs:
Vital Signs
Temp Pulse Resp BP Pulse Ox
98.4 F 88 18 153/93 99
05/23/23 03:50 05/23/23 03:50 05/23/23 03:50 05/23/23 03:50 05/23/23 03:50
I&O
05/22/23 05/23/23 05/24/23
06:59 06:59 06:59
Intake Total 720 / 720 940 / 940
Output Total 1220 / 1220 80 / 80
Balance -500 / -500 860 / 860
Review of Systems
-
History Source: Patient and Coordinated Provider
Constitutional: Denies Fever
EENT: Reports No Symptoms Reported
Respiratory: Denies Trouble Breathing (totally resolved)
Cardiac: Reports No Symptoms; Denies Chest Pain
Abdomen/GI: Reports Abdominal Pain (post op,significantly better, able to take deeper breaths)
Breast: Reports Pain (post op)
Musculoskeletal: Reports No Symptoms
Physical Exam
-
General: Well Developed, Well Nourished and No Apparent Distress
HEENT: Normocephalic, Atraumatic and Moist Mucous Membranes
Respiratory: Clear to Auscultation (toally clear on deep respirations); Negative Wheezes, Rales or Rhonchi
Cardiac: Regular Rhythm and S1/S2
GI: Soft, Normal Bowel Sounds and Tender (post op)
Neuro: Awake, Alert and Oriented
[2023-05-23] MEDS: LEXAPRO 20 MG PO (08:08)
[2023-05-23] MEDS: MUCINEX 600 MG PO (08:09)
[2023-05-23] MEDS: STERILE WATER FOR INJECTION 10 ML IV (08:09)
[2023-05-23] MEDS: ROCEPHIN 1000 MG IV (08:09)
[2023-05-23] MEDS: FLAGYL 500 MG 100 IV (08:09)
[2023-05-23 08:17] VITALS: BP 140/99
--- NOTE | 2023-05-23 08:30 | W.DS.TRANS ---
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
-
Discharge Instructions:
Discharge Diagnosis/Procedures Aspiration Pneumonia, Pulmonary Embolism
Diet No restrictions
Activity No restrictions
Driving Restrictions As prior to admission
Bathing Restrictions as per Dr. oGnzalez
Blood Work CBC, BMP in 1-2 weeks
Others Tests CXR in 1-2 weeks
Wound Care as per Dr. Gonzalez
Instructions:
Stand-Alone Forms:
Changes to Home Medications: Yes
Discharge Medications:
DC Medications w/original date entered in [employer]
Vitamin C 1 tab PO NOON 05/21/23
acetaminophen 325 mg tablet (Tylenol) 650 mg PO BIDPRN PRN mild pain 05/21/23
cholecalciferol (vitamin D3) 1 tab PO NOON 05/21/23
clonazepam 1 mg tablet 1 mg PO HS PRN anxiety 05/21/23
escitalopram oxalate 20 mg tablet 20 mg PO DAILY 05/21/23
fluticasone 100 mcg-salmeterol 50 mcg/dose blistr powdr for inhalation 1 inh inhalation R BIDPRN PRN when feel sick 05/21/23
levothyroxine 100 mcg tablet 100 mcg PO DAILY 05/21/23
polyethylene glycol 3350 17 gram oral powder packet (Miralax) 17 g PO DAILY PRN constipation 05/21/23
zinc 1 tab PO NOON 05/21/23
cefuroxime axetil 500 mg tablet 500 mg PO BID 7 days #14 tabs 05/23/23
metronidazole 500 mg tablet 500 mg PO Q8H 7 days #21 tabs 05/23/23
rivaroxaban 20 mg tablet (Xarelto) 20 mg PO DAILY #30 tabs 05/23/23
Home Medication Changes
Pt was given a Xarelto starter Pack
To take Ceftin and Flagyl for 1 week
Pending Results: No
[2023-05-23] MEDS: XARELTO 15 MG PO (10:39)
[2023-05-23 10:58] LABS: APTT 35.2 Sec (23.4-35.0)
[2023-05-23 11:00] VITALS: BP 137/87
--- NOTE | 2023-05-23 11:04 | CM ---
Pt for d/c - spoke with pt
Has ride home
Plan d/c to home - no needs
[2023-05-23] MEDS: VITAMIN C 250 MG PO (11:39)
[2023-05-23] MEDS: ZINC SULFATE 220 MG PO (11:39)
[2023-05-23] MEDS: VITAMIN D3 (cholecalciferol) 10 MCG PO (11:39)
[2023-05-23] MEDS: PERCOCET 5/325 1 TABLET PO (13:57)
[2023-05-23 15:00] VITALS: BP 115/85
[2023-05-23 15:23] VITALS: BP 115/85
== END 2023-05-23 16:10 | disposition home or self-care (01) | DRG 177 ==
LOC: 2 SOUTH 13:29
PROVIDERS: Emergency Medicine; ADMITTING PHYSICIAN Internal Medicine; CONSULT PHYSICIAN Internal Medicine Pulmonary Disease; EMERGENCY PHYSICIAN Emergency Medicine
DX: J69.0 Pneumonitis due to inhalation of food and vomit (principal); I26.99 Other pulmonary embolism without acute cor pulmonale; E87.1 Hypo-osmolality and hyponatremia; J90 Pleural effusion, not elsewhere classified; J98.11 Atelectasis; J95.89 Other postprocedural complications and disorders of respiratory system, not elsewhere classified; R06.03 Acute respiratory distress; F32.A Depression, unspecified; I07.1 Rheumatic tricuspid insufficiency; J45.909 Unspecified asthma, uncomplicated; D64.9 Anemia, unspecified; F41.9 Anxiety disorder, unspecified; E03.9 Hypothyroidism, unspecified; E66.9 Obesity, unspecified; Z68.29 Body mass index [BMI] 29.0-29.9, adult; Z79.890 Hormone replacement therapy; Z98.82 Breast implant status; Z98.1 Arthrodesis status
CPT/HCPCS: 93308; 51702; 71045; 71275; 80048; 80053; 83880; 84145; 85025; 85027; 85610; 85730; 93321; 93325; 93970; 99285; Q9967